=== PATIENT | male | born 2000 | race Two or more races ===

== ENCOUNTER 2021-11-20 13:10 | Emergency (ER) | payer OTHER, SELFPAY ==
--- NOTE | ~2021-11-20 | CT_ITS ---
EXAMINATION: CT abdomen pelvis w con DATE: 11/20/2021 17:46 INDICATION: Abdomen pain. Nausea, vomiting and diarrhea. TECHNIQUE: Computed tomography (CT) of the abdomen and pelvis was performed with 100 cc Omnipaque 350 intravenous contrast. The dose-length product was 240.52 mGy-cm. Automated exposure control and iter ative reconstruction technique were employed. COMPARISON: None. FINDINGS: Lung bases are unremarkable. Heart size is normal. No significant pleural or pericardial ef fusion. There are small hypodensities of the liver, most likely benign cysts or hemangiomas. The sple en, pancreas, adrenal glands and kidneys are unremarkable. Gallbladder is present. No free air or hira e fluid. Nonobstructive bowel pattern. No abnormal pelvic masses or fluid collections. No significant vascular abnormality. No lymphadenopathy. There is mild levoscoliosis. The appendix is not positivel y visualized. There is no pericecal inflammatory change to suggest appendicitis. IMPRESSION: 1. No acute abdominal abnormality. Reviewed, dictated and finalized at location A.
[2021-11-20 13:13] VITALS: BP 120/61; PULSE 63; RESP 16; TEMP 36.9; O2SAT 99
[2021-11-20 16:25] LABS: Basophils Absolute Auto 0.1 K/mm3 (0.0-0.1); Basophils Percent Auto 0.9 % (0.2-1.2); Eosinophils Absolute Auto 0.6 K/mm3 (0-0.3); Eosinophils Percent Auto 11.1 % (0-4.4); Hemoglobin 14.2 g/dL (14.0-18.0); Immature Granulocyte Absolute 0.02 K/mm3 (0.00-0.031); Immature Granulocyte Percent A 0.4 % (0-0.5); Lymphocytes Absolute Auto 2.01 K/mm3 (0.9-3.2); Lymphocytes Percent Auto 35.4 % (18.3-44.2); Mean Corpuscular Hemoglobin 31.2 pg (26-34); Mean Corpuscular Volume 94.5 fl (80-100); Mean Platelet Volume 8.9 fl (7.4-10.4); Monocytes Absolute Auto 0.3 K/mm3 (0.1-0.6); Monocytes Percent Auto 5.8 % (2.6-8.5); Neutrophils Absolute Auto 2.6 K/mm3 (1.3-6.7); Neutrophils Percent Auto 46.4 % (45.5-73.1); Platelet Count Result 229 k/mm3 (150-375); Red Blood Count 4.55 M/mm3 (4.6-6.20); Red Cell Distribution Width 12.6 % (11.5-14.5); White Blood Count 5.7 K/mm3 (4.5-10.0)
[2021-11-20 16:36] LABS: Alanine Aminotransferase 19 U/L (6-50); Albumin Level 4.8 g/dL (3.5-5.1); Alkaline Phosphatase 66 U/L (38-126); Anion Gap 9 mmol/L (8-16); Aspartate Amino Transferase 25 U/L (17-59); Bilirubin,Total 0.8 mg/dL (0.2-1.3); Blood Urea Nitrogen 19 mg/dL (9-20); Calcium 9.1 mg/dL (8.4-10.2); Carbon Dioxide 27 mmol/L (22-30); Chloride 105 mmol/L (98-107); Estimated CRCL calculation 93 ml/min; Estimated Glomerular Filt Rate > 60; Glucose 87 mg/dL (65-110); Lipase 95 U/L (23-300); Potassium 4.2 mmol/L (3.4-5.0); Sodium 141 mmol/L (137-145)
--- NOTE | 2021-11-20 16:45 | ED.GENADULT ---
HPI - General Adult General Chief complaint: Abdominal Pain Stated complaint: abd pain Time Seen by Provider: 11/20/21 16:16 Source: RN notes reviewed History of Present Illness HPI narrative: Patient presents emergency room from home for abdominal pain. Patient states abdominal pain has been ongoing for the past 1 and half months. The pain is located across the upper abdomen does not rate described as burning in nature and at times sharp and stabbing. States the pain does not ever seem to completely resolved he states he has had intermittent nausea and vomiting with the episodes. He states has been evaluated the emergency department was not had any formal work-up with GI denies any fevers or chills chest pain, shortness of breath diarrhea or any other symptoms Related Data Allergies Allergy/AdvReac Type Severity Reaction Status Date / Time amoxicillin Allergy Rash Verified 11/20/21 13:15 Review of Systems Review of Systems: Gen.: Denies fevers or chills ENT: Denies congestion Respiratory: Denies shortness of breath or cough CV: Denies chest pain or palpitations GI: See HPI denies burning, urgency, frequency or hematuria Musculoskeletal: Denies back pain or muscle pain Neuro: Denies numbness, tingling, weakness or focal weakness Skin: Denies rash Except as documented, all other systems reviewed and negative PMFSH Past Medical History Medical History (Updated 11/20/21 @ 18:12 by Александр Nielsen DO) Patient denies significant medical history Social History Social History (Updated 11/20/21 @ 16:46 by Александр Nielsen DO) Smoking status: Never smoker Exam Narrative: APPEARANCE: No acute distress, nontoxic, resting in bed HEENT: Normocephalic, atraumatic, OMM RESPIRATORY: No respiratory distress, clear to auscultation bilaterally with no rhonchi wheezing or rales CARDIOVASCULAR: RRR s murmur ABDOMINAL: Soft nondistended tender palpation epigastric and right upper quadrant left upper quadrant no rebound or guarding MUSCULOSKELETAl: Moves all extremities. No clubbing, cyanosis or edema. NEURO: Awake and alert. Following commands, speech normal, no focal deficits SKIN:: Warm, dry. Normal Color PSYCHIATRIC: Normal affect/mood Course Course Emergency Course: Patient states pain is improved with GI cocktail Patient states that they are feeling much better at this time. States abdominal pain has resolved. Repeat abdominal exam shows the patient's abdomen to be soft and nontender. Discussed with patient results of workup and diagnosis. Discussed need for follow-up with primary care physician, reasons to return to the emergency department in proper use of medication. Patient understands and agrees to current treatment plan discussed with patient need for follow-up with GI and need for possible endoscopy Vital Signs Vital signs: Vital Signs Temperature 98.4 F 11/20/21 13:13 Pulse Rate 63 11/20/21 13:13 Respiratory Rate 16 11/20/21 13:13 Blood Pressure 120/61 11/20/21 13:13 Pulse Oximetry 99 11/20/21 13:13 Temperature 98.4 F 11/20/21 13:13 Pulse Rate 63 11/20/21 13:13 Respiratory Rate 16 11/20/21 13:13 Blood Pressure 120/61 11/20/21 13:13 Pulse Oximetry 99 11/20/21 13:13 Medical Decision Making MDM Narrative Medical decision making narrative: Patient's abdomen is soft without significant pain or signs of surgical abdomen on serial exams. Lab and x-ray evaluations are reviewed and patient is felt to be a reasonable candidate for outpatient management. Patient was instructed as to limitations of x-ray and laboratory evaluation and encouraged to return to ED or primary physician for repeat exam in 12 hours if continued or worsening pain Vital Signs Vital Signs: Vital Signs Temperature 98.4 F 11/20/21 13:13 Pulse Rate 63 11/20/21 13:13 Respiratory Rate 16 11/20/21 13:13 Blood Pressure 120/61 11/20/21 13:13 Pulse Oximetry 99 11/20/21 13:13 Temper
[2021-11-20 17:23] LABS: Appearance Urine Clear (Clear); Bilirubin Urine 1+ (Negative); Blood Urine Negative (Negative); Color Urine Yellow (Yellow); Glucose Urine UA Negative (Negative); Ketones Urine 1+ mg/dL (Negative); Leukocyte Esterase Ur Negative LEU/UL (Negative); Nitrate Urine Negative (Negative); Protein Urine Negative (Negative); Specific Grav Ur >= 1.030 (1.001-1.035)
[2021-11-20 17:27] LABS: Mucus Urine Few /lpf; RBC Urine 0-2 /hpf (0-2); Squamous Epithelial Cell Urine Rare /hpf (Few); WBC Urine 0-3 /hpf
[2021-11-20 17:31] LABS: Add Urine Microscopic? YES
== END 2021-11-20 19:06 | disposition home or self-care (01) ==
PROVIDERS: Emergency Provider Emergency Medicine; PCP Physician Assistant
DX: R10.10 Upper abdominal pain, unspecified (principal)
CPT/HCPCS: 36415; 74177; 80053; 81001; 83690; 85025; 99284; A9270; Q9967

== ENCOUNTER 2021-12-12 13:26 | Emergency (ER) | payer OTHER, SELFPAY ==
[2021-12-12 13:40] VITALS: BP 119/73; PULSE 87; RESP 16; TEMP 36.6; O2SAT 99
[2021-12-12 14:13] LABS: Basophils Absolute Auto 0.1 K/mm3 (0.0-0.1); Eosinophils Absolute Auto 0.4 K/mm3 (0-0.3); Eosinophils Percent Auto 7.1 % (0-4.4); Hematocrit 43.6 % (42.0-52.0); Hemoglobin 14.7 g/dL (14.0-18.0); Immature Granulocyte Absolute 0.01 K/mm3 (0.00-0.031); Immature Granulocyte Percent A 0.2 % (0-0.5); Lymphocytes Absolute Auto 1.56 K/mm3 (0.9-3.2); Lymphocytes Percent Auto 30.8 % (18.3-44.2); Mean Corpuscular HGB Conc 33.7 g/dl (32-36); Mean Platelet Volume 8.8 fl (7.4-10.4); Monocytes Absolute Auto 0.4 K/mm3 (0.1-0.6); Monocytes Percent Auto 6.9 % (2.6-8.5); Neutrophils Absolute Auto 2.7 K/mm3 (1.3-6.7); Platelet Count Result 226 k/mm3 (150-375); Red Blood Count 4.74 M/mm3 (4.6-6.20); Red Cell Distribution Width 12.3 % (11.5-14.5); White Blood Count 5.1 K/mm3 (4.5-10.0)
[2021-12-12 14:27] LABS: Alanine Aminotransferase 24 U/L (6-50); Albumin Level 4.9 g/dL (3.5-5.1); Alkaline Phosphatase 62 U/L (38-126); Anion Gap 9 mmol/L (8-16); Aspartate Amino Transferase 27 U/L (17-59); Blood Urea Nitrogen 13 mg/dL (9-20); Calcium 9.3 mg/dL (8.4-10.2); Carbon Dioxide 27 mmol/L (22-30); Chloride 107 mmol/L (98-107); Estimated CRCL calculation 93 ml/min; Estimated Glomerular Filt Rate > 60; Glucose 88 mg/dL (65-110); Lipase 29 U/L (23-300); Potassium 3.9 mmol/L (3.4-5.0); Sodium 143 mmol/L (137-145)
[2021-12-12 14:28] LABS: Appearance Urine Clear (Clear); Bilirubin Urine Negative (Negative); Blood Urine Negative (Negative); Color Urine Yellow (Yellow); Glucose Urine UA Negative (Negative); Ketones Urine Trace mg/dL (Negative); Leukocyte Esterase Ur Negative LEU/UL (Negative); Nitrate Urine Negative (Negative); Protein Urine 1+ mg/dL (Negative); Specific Grav Ur 1.025 (1.001-1.035)
[2021-12-12 15:15] LABS: Mucus Urine Rare /lpf; RBC Urine 0-2 /hpf (0-2); Squamous Epithelial Cell Urine Rare /hpf (Few); WBC Urine 0-3 /hpf
[2021-12-12 15:19] LABS: Add Urine Microscopic? YES
--- NOTE | 2021-12-12 17:15 | ED.ABDPAIN ---
HPI - Abdominal Pain General Chief Complaint: Abdominal Pain Stated Complaint: N/V abd pain Time Seen by Provider: 12/12/21 17:08 History of Present Illness HPI narrative: 21-year-old male presents to the emergency room for evaluation of nausea and vomiting since this morning. Patient states that he has been experiencing intermittent upper abdominal pain for 2 months. Was seen here in the emergency room 2 weeks ago for complaints of abdominal pain. Patient remarks that the pain is burning in nature and radiates up into his middle chest. Patient endorses intermittent episodes of diarrhea and constipation, sometimes throughout the day. Patient is awaiting evaluation from Dr. Evans next month. Denies bloody or bilious vomiting. Related Data Allergies Allergy/AdvReac Type Severity Reaction Status Date / Time amoxicillin Allergy Rash Verified 11/20/21 13:15 Review of Systems Review of Systems: CONSTITUTIONAL: Denies fever, chills, or sweats. EYES: Denies visual changes, redness, or discharge. ENT: Denies rhinorrhea, congestion, sore throat, or otalgia. CARDIOVASCULAR: Denies chest pain, palpitations, or edema. RESPIRATORY: Denies cough or dyspnea. GASTROINTESTINAL: Reports abdominal pain, nausea, vomiting, or diarrhea. GENITOURINARY: Denies dysuria or hematuria. SKIN: Denies rash or itching. MUSCULOSKELETAL: Denies back pain, joint pain, or myalgia. NEUROLOGIC: Denies headache, numbness, dizziness, or weakness. PSYCHIATRIC: Denies anxiety or depression. PMFSH Past Medical History Medical History Patient denies significant medical history Social History Social History Smoking status: Never smoker Exam Narrative: GENERAL: Well-appearing, well-nourished, no physical limitations, and in no acute distress. HEAD: Normocephalic, atraumatic. EYES: Conjunctivae normal, PERRLA and EOMI. CHEST: Clear to auscultation. No respiratory distress. No wheezes rales or rhonchi. HEART: Regular rate and rhythm. No murmur heard. Normal peripheral pulses. ABDOMEN: Soft, upper abdominal tenderness, nondistended, normal active bowel sounds. BACK: No CVA tenderness EXTREMITIES: Normal range of motion. No edema. No clubbing or cyanosis SKIN: Warm, dry, no rash. No noted wounds NEURO: No focal deficits. Alert and oriented x3. MAEW. CN's II-XI intact bilaterally, normal gait PSYCH: Cooperative. Normal mood and affect. Course Vital Signs Vital signs: Vital Signs Temperature 36.6 C 12/12/21 13:40 Pulse Rate 87 12/12/21 13:40 Respiratory Rate 16 12/12/21 13:40 Blood Pressure 119/73 12/12/21 13:40 Pulse Oximetry 99 12/12/21 13:40 Oxygen Delivery Room Air 12/12/21 13:40 Temperature 36.6 C 12/12/21 13:40 Pulse Rate 64 12/12/21 17:50 Respiratory Rate 18 12/12/21 17:50 Blood Pressure 112/62 12/12/21 17:50 Pulse Oximetry 97 12/12/21 17:50 Oxygen Delivery Room Air 12/12/21 13:40 MDM - Abdominal Pain Lab Data Result diagrams: 12/12/21 14:04 12/12/21 14:04 Labs: Lab Results 12/12/21 12/12/21 12/12/21 Range/Units 14:04 14:04 14:10 WBC 5.1 (4.5-10.0) K/mm3 RBC 4.74 (4.6-6.20) M/mm3 Hgb 14.7 (14.0-18.0) g/dL Hct 43.6 (42.0-52.0) % MCV 92.0 (80-100) fl MCH 31.0 (26-34) pg MCHC 33.7 (32-36) g/dl RDW 12.3 (11.5-14.5) % Plt Count 226 (150-375) k/mm3 MPV 8.8 (7.4-10.4) fl Immature Gran % (Auto) 0.2 (0-0.5) % Neut % (Auto) 54.0 (45.5-73.1) % Lymph % (Auto) 30.8 (18.3-44.2) % Miller % (Auto) 6.9 (2.6-8.5) % Eos % (Auto) 7.1 H (0-4.4) % Baso % (Auto) 1.0 (0.2-1.2) % Lymph # (Auto) 1.56 (0.9-3.2) K/mm3 Miller # (Auto) 0.4 (0.1-0.6) K/mm3 Eos # (Auto) 0.4 H (0-0.3) K/mm3 Baso # (Auto) 0.1 (0.0-0.1) K/mm3 Abs Immat Gran (auto) 0.01 (0.00-0.031) K/mm3 Absolut
[2021-12-12] MEDS: SODIUM CHLORIDE 0.9% IV 1,000 ML 999 ML IV CONT (17:49)
[2021-12-12] MEDS: DICYCLOMINE HCL INJ 20 MG/2 ML VIAL IM (17:49)
[2021-12-12] MEDS: ONDANSETRON INJ 4 MG/2 ML VIAL IV PUSH (17:49)
[2021-12-12 17:50] VITALS: BP 112/62; PULSE 64; RESP 18; O2SAT 97
[2021-12-12] MEDS: PANTOPRAZOLE SODIUM IV 40 MG VIAL IV PUSH (17:50)
[2021-12-12 19:14] VITALS: BP 116/68; PULSE 58; RESP 18; O2SAT 100
== END 2021-12-12 19:15 | disposition home or self-care (01) ==
PROVIDERS: Emergency Medicine; Emergency Provider Nurse Practitioner Family; PCP Physician Assistant
DX: K29.70 Gastritis, unspecified, without bleeding (principal)
CPT/HCPCS: 36415; 80053; 81001; 83690; 85025; 96361; 96372; 96374; 96375; 99284; C9113; J0500; J2405; J7030

== ENCOUNTER 2022-05-26 14:28 | Emergency (ER) | payer OTHER, SELFPAY ==
--- NOTE | 2022-05-26 14:39 | ED.NAVMDI ---
HPI - Nausea/Vomiting/Diarrhea General Chief complaint: Nausea/Vomiting/Diarrhea Stated complaint: vomitting,nausea,lightheaded Time Seen by Provider: 05/26/22 15:00 Source: patient and RN notes reviewed Mode of arrival: ambulatory Limitations: no limitations History of Present Illness HPI Narrative: [age] for old male presents concern for nausea, vomiting, diarrhea, runny nose, stuffy nose, sore throat, headache, feeling lightheaded for several days. He reports he has remained or symptoms. He denies abdominal pain. Reports he is currently seeing a GI for workup of chronic GI problems. He reports Zofran helps when he is out MD elicited complaint: nausea, vomiting and diarrhea Related Data Home Medications Medication Instructions Recorded Confirmed lamotrigine 25 mg tablet 25 mg PO DAILY 05/26/22 05/26/22 Allergies Allergy/AdvReac Type Severity Reaction Status Date / Time amoxicillin Allergy Rash Verified 11/20/21 13:15 Review of Systems Review of Systems: CONSTITUTIONAL: Reports malaise. She chills, sweats, or fever. ENT: Reports rhinorrhea, congestion, sore throat. Denies sinus pain, otalgia CARDIOVASCULAR: Denies chest pain, palpitations, or edema. RESPIRATORY: Denies cough or dyspnea. GASTROINTESTINAL: Denies abdominal pain reports nausea, vomiting, diarrhea. Denies bloody, or mucous stools. GENITOURINARY: Denies dysuria or hematuria. MUSCULOSKELETAL: Denies myalgia. NEUROLOGIC: Denies headache. Reports lightheadedness All systems reviewed & are unremarkable except as noted in HPI and below PMFSH Past Medical History Medical History Patient denies significant medical history Social History Social History Smoking status: Never smoker Comments At time of signature, agree with nursing past medical, surgical, social and family history. There is no relevant family history pertinent to the presenting complaint Exam Narrative: GENERAL: Nontoxic-appearing and in no acute distress. HEAD: Normocephalic EYES: PERRLA, conjunctivae clear ENT: Nares clear, clear discharge. Mucous membranes moist. TM pearly deal with dull light reflex bilaterally; no tragal tenderness. Oropharynx erythematous without lesions. Tonsils not enlarged and without exudate, no drooling, no hoarseness, no trismus, uvula midline. NECK: Supple. No lymphadenopathy CHEST: Clear to auscultation, breath sounds equal. No wheezing, rhonchi, rales, or stridor. No respiratory distress, speaks in full sentences. HEART: Regular rate and rhythm. No murmur heard. ABD: Soft, no guarding, no palpable masses, mildly tender to palpation generally SKIN: Warm, dry, no rash. NEURO: Alert and oriented x3. PSYCH: Normal mood and affect Course Course Emergency Course: Patient is aware of diagnosis, understands and agrees to treatment plan. Anticipatory guidance given. Patient agrees to follow-up as directed and is aware of reasons to seek care at the emergency department. Portions of this record may have been created with voice recognition software Level of Care: Express Care Visit Vital Signs Vital signs: Reviewed. MDM - Nausea/Vomiting/Diarrhea MDM Narrative Medical decision making narrative: Differential diagnosis considered: Bowles virus, strep pharyngitis, allergic rhinitis, upper respiratory tract infection, sinusitis, rhinosinusitis, nasopharyngitis. viral pharyngitis, otitis media, otitis externa, pneumonia, bronchitis, viral cough syndrome, viral syndrome, and influenza. Exam findings show no acute concerns or changes; patient is non-toxic appearing and is in no distress. Patient is appropriate for outpatient treatment and follow-up. No evidence of pancreatitis, AAA, cholecystitis, choledocholithiasis, cholangitis, mesenteric ischemia, small bowel obstruction, diverticulitis, colitis, appendicitis, or pelvic etiology such as testicu
[2022-05-26 14:40] VITALS: BP 115/64; PULSE 98; RESP 16; TEMP 36.7; O2SAT 100
== END 2022-05-26 15:35 | disposition home or self-care (01) ==
PROVIDERS: Emergency Provider Nurse Practitioner; PCP Physician Assistant
DX: B34.9 Viral infection, unspecified (principal); Z20.822 Contact with and (suspected) exposure to COVID-19
CPT/HCPCS: 87081; 87426; 87804; 87880; 99213; C9803; G0463

== ENCOUNTER 2022-12-10 08:29 | Emergency (ER) | payer OTHER, SELFPAY ==
--- NOTE | 2022-12-10 08:35 | ED.MALEGU ---
HPI - Male Genitourinary General Chief complaint: Urogenital-Male Stated complaint: testicular pain Time Seen by Provider: 12/10/22 08:30 Source: patient Mode of arrival: ambulatory Limitations: no limitations History of Present Illness HPI Narrative: Patient is a 22-year-old male who presents with severe testicular pain bilaterally since 6:00 a.m.. Patient states he had difficulty starting stream and then felt as if his urine was blocked but was able to pass urine. Patient denies any swelling to testicles or discharge from penis. States his testicles are very tender to touch and rates his pain at 9/10. Also reports nausea due to pain. Denies any fever, chills, or back pain, vomiting, diarrhea. Related Data Home Medications Medication Instructions Recorded Confirmed lamotrigine 25 mg tablet 12.5 mg PO DAILY 05/26/22 12/10/22 Allergies Allergy/AdvReac Type Severity Reaction Status Date / Time amoxicillin Allergy Rash Verified 12/10/22 08:42 Review of Systems Review of Systems: All systems reviewed & are unremarkable except as noted in HPI and below Constitutional: Constitutional: Denies chills, Denies fever(s), Denies headache(s), Denies malaise and Denies weakness Eyes: Eyes: Denies change in vision, Denies eye discharge and Denies irritation ENT: Denies otalgia, Denies headache(s), Denies nasal congestion, Denies nasal discharge, Denies sinus pain and Denies sore throat Cardiovascular: Cardiovascular: Denies chest pain, Denies edema, Denies palpitations and Denies dyspnea Respiratory: Respiratory: Denies cough and Denies dyspnea Gastrointestinal: Gastrointestinal: Denies abdominal pain, Denies diarrhea, Reports nausea and Denies vomiting Genitourinary: Genitourinary: Denies hematuria, Reports oliguria, Denies dysuria, Denies flank pain, Denies penile discharge, Denies scrotal swelling, Reports testicular pain, Reports urinary hesitancy and Denies urinary urgency Musculoskeletal: Musculoskeletal: Denies back pain and Denies numbness Integumentary/Breasts: Skin/Breast: Denies pruritus and Denies rash Neurologic: Denies headache(s), Denies numbness and Denies weakness Psychiatric: Psychiatric: Reports no additional psychiatric complaints Endocrine: Endocrine: Denies palpitations PMFSH Past Medical History Medical History Patient denies significant medical history Social History Social History Smoking status: Never smoker Comments At time of signature, agree with nursing past medical, surgical, social and family history. There is no relevant family history pertinent to the presenting complaint. Exam Const: General: cooperative, healthy appearing, comfortable, no acute distress and well nourished Nutritional Appearance: well nourished Orientation/consciousness: patient oriented x3 HENMT: Head: normocephalic and atraumatic Ears: external ears normal Face/Nose/Sinus: Normal external nose present, Normal nares present and normal facial exam Face and sinus: normal facial exam Eyes: General: appearance normal, both eyes and all related structures Pupils: Equal, round and reactive pupils present EOM: EOMs intact bilaterally Neck: Neck: normal visual inspection, full ROM and supple Chest: Chest palpation & inspection: normal inspection of the chest Resp: Effort & Inspection: normal respiratory effort and able to speak in complete sentences Cardio: Rate: regular rate Rhythm: regular rhythm GI: Inspection: normal to inspection GI Palp: No abdominal tenderness and Yes Soft to palpation : General: Yes no CVA tenderness Male General Exam: Yes tenderness Penis: Yes normal penis, Yes circumcised, No Localized penile swelling present and No Genital lesions present Meatus: meatus normal and no meatla discharge Scrotum: not edematous Testes: epididymal tenderness bilateral, no testicular
[2022-12-10 08:43] VITALS: BP 123/74; PULSE 72; RESP 16; TEMP 37.4; O2SAT 99
== END 2022-12-10 08:53 | disposition short-term general hospital (02) ==
PROVIDERS: Emergency Provider Nurse Practitioner Family; PCP Physician Assistant
DX: N50.812 Left testicular pain (principal); N50.811 Right testicular pain
CPT/HCPCS: 99212; G0463

== ENCOUNTER 2022-12-10 09:07 | Emergency (ER) | payer OTHER, SELFPAY ==
--- NOTE | ~2022-12-10 | CT_ITS ---
EXAMINATION: CT abdomen pelvis wo con DATE: 12/10/2022 12:03 INDICATION: Testicular pain. Nausea and vomiting. TECHNIQUE: Computed tomography (CT) of the abdomen and pelvis was performed without intravenous contr ast. Automated exposure control and iterative reconstruction technique were employed. The dose-length product was 188.39 mGy-cm. COMPARISON: CT abdomen and pelvis 11/20/2021 FINDINGS: The visualized portions of the lung bases are clear without pneumonia or pleural effusion. There is a 9 mm cyst in the liver. The gallbladder, spleen, pancreas, adrenal glands, and kidneys are normal. There is no urolithiasis. There are no dilated loops of bowel. The appendix is not visualize d. There are no pathologically enlarged lymph nodes. There is no free intraperitoneal fluid. There is mild lumbar spondylosis. IMPRESSION: 1. No urolithiasis. Reviewed, dictated and finalized at location E. IMPRESSION: 1. No urolithiasis.
--- NOTE | ~2022-12-10 | US_ITS ---
US scrotum doppler INDICATION: Bilateral scrotal pain TECHNIQUE: Testicular sonogram utilizing grayscale and color Doppler FINDINGS: The testes are normal in size and appearance. No focal lesions are seen. The right testes measures 4.1 x 2.3 x 3.2 cm centimeters, and the left testis measures 3.6 x 2.2 x 2.6 cm cm. There is normal vascular flow to both testes. There is a left epididymal cyst measuring 4 mm. There is no varicocele or hydrocele. IMPRESSION: 1. Unremarkable testicular ultrasound. Reviewed, dictated and finalized at location L.
[2022-12-10 09:18] VITALS: BP 108/64; PULSE 70; RESP 16; TEMP 36.3; O2SAT 98
[2022-12-10 10:37] LABS: Appearance Urine Clear (Clear); Bilirubin Urine Negative (Negative); Blood Urine Negative (Negative); Color Urine Yellow (Yellow); Glucose Urine UA Negative (Negative); Ketones Urine Negative (Negative); Leukocyte Esterase Ur Negative LEU/UL (Negative); Nitrate Urine Negative (Negative); Protein Urine Negative (Negative); Specific Grav Ur 1.018 (1.001-1.035); pH Urine 7.5 (5.0-9.0)
[2022-12-10 10:42] LABS: Add Urine Microscopic? NO
[2022-12-10 12:06] LABS: Chlamydia trachomatis NOT DETECTED (NOT DETECTE); Neisseria gonorrhoeae PCR NOT DETECTED (NOT DETECTE)
[2022-12-10 12:35] VITALS: BP 107/84; PULSE 80; RESP 16; O2SAT 100
--- NOTE | 2022-12-10 18:55 | ED.MALEGU ---
HPI - Male Genitourinary General Chief complaint: Urogenital-Male Stated complaint: testicle pain Time Seen by Provider: 12/10/22 09:35 History of Present Illness HPI Narrative: Patient states he woke up this morning with pain to bilateral testicles, he denies any recent trauma, no history of kidney stones, no dysuria, he is not sexually active and has not been for 5 years. Related Data Home Medications Medication Instructions Recorded Confirmed lamotrigine 25 mg tablet 12.5 mg PO DAILY 05/26/22 12/10/22 Allergies Allergy/AdvReac Type Severity Reaction Status Date / Time amoxicillin Allergy Rash Verified 12/10/22 09:35 Review of Systems Review of Systems: CONST: No fever. HEENT: No sore throat C/V: No chest pain RESP: No cough GI: Nausea : Testicular pain M/S: No joint pain. SKIN: No rash. NEURO: [No headache or focal numbness or weakness] PSYCH: [No depression] [facility] Past Medical History Medical History Patient denies significant medical history Social History Social History Smoking status: Never smoker Exam Narrative: EXAMINATION OF ORGAN SYSTEMS/BODY AREAS: Constitutional: Vital signs per nursing GENERAL:[No acute distress, non-toxic appearing.] HEAD: Normal with no signs of head trauma. EYES: EOMI, conjunctiva normal ENT: Hearing grossly intact LUNGS: Nonlabored breathing. HEART: [Regular rate and rhythm] ABD: [Soft], [nontender to palpation] : Bilateral testicular tenderness, not exquisite; no highriding, normal cremasteric reflex EXT: Normal range of motion SKIN: [No rashes or lesions.] NEURO: [Alert and oriented x 3. No gross focal sensory or strength deficits.] PSYCH: Normal affect Course Vital Signs Vital signs: Vital Signs Temperature 97.3 F L 12/10/22 09:18 Pulse Rate 70 12/10/22 09:18 Respiratory Rate 16 12/10/22 09:18 Blood Pressure 108/64 12/10/22 09:18 Pulse Oximetry 98 12/10/22 09:18 Oxygen Delivery Room Air 12/10/22 09:18 Temperature 97.3 F L 12/10/22 09:18 Pulse Rate 80 12/10/22 12:35 Respiratory Rate 16 12/10/22 12:35 Blood Pressure 107/84 12/10/22 12:35 Pulse Oximetry 100 12/10/22 12:35 Oxygen Delivery Room Air 12/10/22 09:18 MDM - Male Genitourinary MDM Narrative Medical decision making narrative: Patient presenting with bilateral testicular pain, he is well-appearing here, no severe tenderness on exam, I have very low concern for torsion given the presentation, ultrasound obtained here does not show any obvious cause, urine labs including gonorrhea and chlamydia are negative, CT abdomen/pelvis obtained to rule out stone and this is negative. Discussed with patient he is agreeable to outpatient follow-up with return precautions. Lab Data Labs: Lab Results 12/10/22 Range/Units 10:29 Urine Color Yellow (Yellow) Urine Appearance Clear (Clear) Urine pH 7.5 (5.0-9.0) Ur Specific [place] 1.018 (1.001-1.035) Urine Protein Negative (Negative) mg/dL Urine Glucose (UA) Negative (Negative) mg/dL Urine Ketones Negative (Negative) mg/dL Ur Blood (Man) Negative (Negative) Urine Nitrate Negative (Negative) Urine Bilirubin Negative (Negative) Urine Urobilinogen 1.0 (<2.0) mg/dL Leukocyte Esterase Rfl Negative (Negative) [place]ANKLIN/UL C. trachomatis (PCR) Not detected (NOT DETECTE) N. gonorrhoeae (PCR) Not detected (NOT DETECTE) Discharge Plan Discharge Clinical Impression: Pain in both testicles Patient Disposition: Home, Self-Care Condition: Stable Instructions: Antibiotic Form, Testicle Pain (ED) Additional Instructions: Please follow up with the urologist; return to the ER if you feel worse. Prescriptions: No Action lamotrigine 25 mg tablet 12.5 mg PO DAILY famotidine [Pepcid AC] 20 mg tablet 20 mg PO DAILY
== END 2022-12-10 12:35 | disposition home or self-care (01) ==
PROVIDERS: Emergency Provider Emergency Medicine; PCP Physician Assistant
DX: N50.812 Left testicular pain (principal); N50.811 Right testicular pain
CPT/HCPCS: 74176; 76870; 81003; 87491; 87591; 93976; 99284